=== PATIENT | female | born 1945 | race Caucasian/White ===

== ENCOUNTER 2016-12-01 08:46 | Day surgery (SDC) | payer OTHER ==
[~2016-12-01] VITALS: Ht 162.6 cm; Wt 64.4 kg
[~2016-12-01 08:46] MED LIST: BIOTIN 5000MCG PO; CLARITIN10 MG PO; LISINOPRIL10 MG PO; NEURONTIN600 MG PO; TRAMADOL HCL50 MG PO; TYLENOL EXTRA500 MG PO; VITAMIN B-6100 MG PO; VITAMIN E400 UNIT PO; VIVELLE-DOT0.0375 MG TD; XANAX0.25 MG PO; XANAX0.5 MG PO
== END 2016-12-01 09:50 | disposition home or self-care (01) ==
LOC: PAIN 08:46 → SDC 09:15 → PAIN 09:50
PROC: 3E0S33Z Introduction of Anti-inflammatory into Epidural Space, Percutaneous Approach (ICD-10-PCS; principal; 2016-12-01)
DX: M54.16 Radiculopathy, lumbar region (principal); M48.06 Spinal stenosis, lumbar region; M51.26 Other intervertebral disc displacement, lumbar region; M79.1 Myalgia; I10 Essential (primary) hypertension; E78.5 Hyperlipidemia, unspecified; K21.9 Gastro-esophageal reflux disease without esophagitis
CPT/HCPCS: J1030; J2250; J3010

== ENCOUNTER 2017-01-01 09:51 | Day surgery (SDC) | payer OTHER ==
[~2017-01-01] VITALS: Ht 162.6 cm; Wt 64.4 kg
== END 2017-01-01 10:58 | disposition home or self-care (01) ==
LOC: PAIN 09:51 → SDC 10:30 → PAIN 10:58
DX: M51.16 Intervertebral disc disorders with radiculopathy, lumbar region (principal); M48.06 Spinal stenosis, lumbar region; M54.2 Cervicalgia; M79.1 Myalgia; I10 Essential (primary) hypertension; K21.9 Gastro-esophageal reflux disease without esophagitis; Z79.891 Long term (current) use of opiate analgesic
CPT/HCPCS: J1030; J1100; J2250; J3010; S0020

== ENCOUNTER 2017-01-29 10:02 | Day surgery (SDC) | payer OTHER ==
[~2017-01-29] VITALS: Ht 162.6 cm; Wt 64.4 kg
== END 2017-01-29 12:56 | disposition home or self-care (01) ==
LOC: PAIN 10:02 → SDC 10:45 → PAIN 12:56
DX: M51.16 Intervertebral disc disorders with radiculopathy, lumbar region (principal); M48.06 Spinal stenosis, lumbar region; K21.9 Gastro-esophageal reflux disease without esophagitis; I10 Essential (primary) hypertension; M79.1 Myalgia; E78.5 Hyperlipidemia, unspecified
CPT/HCPCS: J1030; J2250; J2405; J3010

== ENCOUNTER 2017-06-11 00:13 | Emergency (ER) | payer OTHER ==
[~2017-06-11] VITALS: Ht 162.6 cm; Wt 67.1 kg
[2017-06-11] MEDS ORDERED: AUGMENTIN875 MG PO (04:10)
[2017-06-11 04:23] VITALS: BP 128/60
== END 2017-06-11 04:24 | disposition home or self-care (01) ==
LOC: EME 00:13
DX: S61.451A Open bite of right hand, initial encounter (principal); W54.0XXA Bitten by dog, initial encounter; Z23 Encounter for immunization
CPT/HCPCS: 73130; 99281; 99285

== ENCOUNTER 2017-08-24 10:35 | Day surgery (SDC) | payer OTHER ==
[~2017-08-24] VITALS: Ht 162.6 cm; Wt 67.6 kg
[~2017-08-24 10:35] MED LIST changes: +AUGMENTIN875 MG PO; +GLUCOSAMINE &1 EAC1 PO; -VITAMIN B-6100 MG PO; +VITAMIN B-6250 MG PO; +VITAMIN D31000 UNI2 PO; +ZYRTEC10 M3 PO
[2017-08-24] MEDS ORDERED: AMITRIPTYLINE H25 MG PO (10:47)
[2017-08-24] MEDS ORDERED: FLONASE16 G1 BOTH NARES (10:48)
== END 2017-08-24 11:50 | disposition home or self-care (01) ==
LOC: PAIN 10:35 → SDC 11:15 → PAIN 11:15
PROC: 3E0S33Z Introduction of Anti-inflammatory into Epidural Space, Percutaneous Approach (ICD-10-PCS; principal; 2017-08-24)
DX: M54.16 Radiculopathy, lumbar region (principal); M51.26 Other intervertebral disc displacement, lumbar region
CPT/HCPCS: J1100; J3010

== ENCOUNTER 2017-09-21 07:59 | Day surgery (SDC) | payer OTHER ==
[~2017-09-21] VITALS: Ht 162.6 cm; Wt 65.8 kg
[~2017-09-21 07:59] MED LIST changes: +AMITRIPTYLINE H25 MG PO; +FLONASE16 G1 BOTH NARES
== END 2017-09-21 09:35 | disposition home or self-care (01) ==
LOC: PAIN 07:59 → SDC 08:30 → PAIN 09:35
DX: M51.16 Intervertebral disc disorders with radiculopathy, lumbar region (principal); M79.1 Myalgia; M48.061 Spinal stenosis, lumbar region without neurogenic claudication; I10 Essential (primary) hypertension; E04.1 Nontoxic single thyroid nodule; Z79.891 Long term (current) use of opiate analgesic; Z88.0 Allergy status to penicillin
CPT/HCPCS: J1100; J2250; J3010

== ENCOUNTER 2018-03-01 08:56 | Day surgery (SDC) | payer OTHER ==
[~2018-03-01] VITALS: Ht 162.6 cm; Wt 65.8 kg
[2018-03-01] MEDS ORDERED: GABAPENTIN100 MG PO (09:38)
[2018-03-01] MEDS ORDERED: TRAMADOL HCL50 MG PO (09:38)
== END 2018-03-01 11:20 | disposition home or self-care (01) ==
LOC: PAIN 08:56 → SDC 09:30 → PAIN 11:20
DX: M54.16 Radiculopathy, lumbar region (principal); M51.26 Other intervertebral disc displacement, lumbar region; M48.061 Spinal stenosis, lumbar region without neurogenic claudication; M99.83 Other biomechanical lesions of lumbar region; Z88.8 Allergy status to other drugs, medicaments and biological substances
CPT/HCPCS: J1100; J2250; J3010